=== PATIENT | male | born 1980 | race Caucasian/White ===

== ENCOUNTER → 2023-11-03 13:45 | Outpatient (REF) | payer OTHER, SELFPAY | LOC: HWRAD 13:45 | PROVIDERS: ATTENDING PHYSICIAN Family Medicine | DX: R74.8 Abnormal levels of other serum enzymes (principal) | CPT/HCPCS: 76700 ==

== ENCOUNTER → 2024-01-16 09:53 | Outpatient (REF) | payer OTHER, SELFPAY | LOC: RCS 09:53 | PROVIDERS: ATTENDING PHYSICIAN Internal Medicine Cardiovascular Disease; FAMILY PHYSICIAN Family Medicine | DX: R07.89 Other chest pain (principal) | CPT/HCPCS: 93017; 93350 ==

== ENCOUNTER → 2024-08-07 11:14 | Outpatient (REF) | payer OTHER, SELFPAY | LOC: HWEVLT 11:14 | PROVIDERS: ATTENDING PHYSICIAN Radiology Diagnostic Radiology | DX: I83.892 Varicose veins of left lower extremity with other complications (principal) | CPT/HCPCS: 93971 ==

== ENCOUNTER → 2024-12-18 13:36 | Outpatient (REF) | payer OTHER, SELFPAY | LOC: HWEVLT 13:36 | PROVIDERS: ATTENDING PHYSICIAN Radiology Diagnostic Radiology | DX: I83.892 Varicose veins of left lower extremity with other complications (principal) | CPT/HCPCS: 36478; C1769 ==

== ENCOUNTER → 2025-01-07 11:31 | Outpatient (REF) | payer OTHER, SELFPAY | LOC: HWEVLT 11:31 | PROVIDERS: ATTENDING PHYSICIAN Radiology Vascular & Interventional Radiology | DX: I83.892 Varicose veins of left lower extremity with other complications (principal) | CPT/HCPCS: 93971 ==